=== PATIENT | male | born 1985 | race Caucasian/White ===

== ENCOUNTER 2019-08-29 08:01 | Day surgery (SDC) | payer BC ==
[~2019-08-29] VITALS: Ht 172.7 cm; Wt 83.5 kg
[2019-08-29 08:56] VITALS: BP 140/86; Ht 172.7 cm; Wt 83.5 kg
--- NOTE | 2019-08-29 11:04 | NUR ---
PT ROUNDED ON AT THIS TIME, PT DENIES ANY COMPLAINTS AT THIS TIME, NAD NOTED.
--- NOTE | 2019-08-29 15:50 | NUR ---
PT DC INSTRUCTIONS REVIEWED AT THIS TIME, PT VERBALIZES UNDERSTANDING AND AGREES. PT IV REMOVED AT THIS TIME, INTACT, NO REDNESS OR SWELLING NOTED AT SITE.
--- NOTE | 2019-08-29 15:53 | OP ---
PATIENT NAME: CHARLEEN CORRIGAN MEDICAL RECORD: [id number] :87 LOCATION:[facility] ADMISSION DATE: SURGEON: HECTOR MELARA MD DATE OF OPERATION: 08/29/2019 SURGEON: Hector Melara MD ANESTHESIA: General anesthesia by José Manuel Blake CRNA DIAGNOSIS: Male sterilization. PROCEDURE: Vasectomy. SPECIMENS: Left vas, right vas segment. ESTIMATED BLOOD LOSS: None. CLINICAL HISTORY: This is a 34-year-old male whom I saw in February of this year regarding a vasectomy. At that time, he was ambivalent about having this procedure done and he did not have it done. Subsequently, his became again. Now, he wants to have the vasectomy done. He is not allergic to any medications. He was given ampicillin and sulbactam continuous improvement manager to the OR. DESCRIPTION OF PROCEDURE: The patient was given induction of general anesthesia in supine position. He was then prepped and draped. The right vas deferens was palpated through the scrotal skin. Towel clips were placed to lock the vas segments in location proximally and distally. The skin overlying the vas segment was infiltrated with 0.25% Marcaine with epinephrine. The incision was made using a 15 blade. Isidro's clamps were then used to isolate the vas. The tunics were stripped off the vas deferens. The vas was then clamped proximally and distally with hemostats. The intervening segment was excised using a #15 blade. The cut vasal ends were cauterized using a needle tip Bovie. The vasal ends were also ligated using 2-0 Prolene. The vasal ends were then placed back into the hemiscrotum. All bleeding points were cauterized. The scrotal skin was closed using simple interrupted 4-0 Vicryl. The identical procedure was performed on the left side. Fluffs and mesh panties were given to the patient. I will see the patient in followup in 1 months' time. He is aware that he is still fertile for the next month or so until we have a post-vasectomy semen analysis, which shows azoospermia. TRANSINT:[id number] Voice Confirmation ID: [id number] DOCUMENT ID: [id number] HECTOR MELARA MD at [id number] CC: [id number] DICTATION DATE: 08/29/19 1336 MACHINIST BENCH: 08/29/19 1546 [facility] [address] [facility], [facility]
--- NOTE | 2019-08-29 16:00 | NUR ---
PT LEAVING OPS AT THIS TIME, NAD NOTED.
== END 2019-08-29 16:00 | disposition home or self-care (01) ==
LOC: D.OPS 08:01 → D.PAN 09:00 → D.OPS 09:35 → D.PAN 10:30 → D.OPS 16:00
PROVIDERS: ATTEND Urology
DX: Z30.2 Encounter for sterilization (principal)